=== PATIENT | male | born 1975 | race Caucasian/White ===

== ENCOUNTER 2017-02-24 21:25 | Emergency (ER) | payer MEDICAID ==
[~2017-02-24] VITALS: Ht 182.9 cm; Wt 79.4 kg
[2017-02-24 21:35] VITALS: BP 149/89
== END 2017-02-25 01:54 | disposition left against medical advice (07) ==
LOC: EDBD 21:25 → EDSEX 21:25 → ER 21:31
DX: M25.571 Pain in right ankle and joints of right foot (principal); Z53.21 Procedure and treatment not carried out due to patient leaving prior to being seen by health care provider; W19.XXXA Unspecified fall, initial encounter; Y93.89 Activity, other specified; Y99.8 Other external cause status; Y92.89 Other specified places as the place of occurrence of the external cause

== ENCOUNTER 2018-06-04 10:55 | Emergency (ER) | payer MEDICAID ==
[~2018-06-04] VITALS: Ht 195.6 cm; Wt 86.2 kg
[2018-06-04 11:53] LABS: Urine Bacteria FEW /hpf (None Seen); Urine Blood TRACE /uL (Negative); Urine Mucus FEW (None Seen); Urine Specific Gravity 1.018 (1.001-1.035); Urine WBC 1 /hpf (0 - 3)
[2018-06-04] MEDS ORDERED: PANTOPRAZOLE 40 MG TAB PO ONE (12:00)
[2018-06-04 13:28] LABS: Basophils # (auto) 0 uL; Basophils % (auto) 0.4 % (0.0-2.0); Eosinophils # (auto) 0.2 uL; Eosinophils % (auto) 1.6 % (0.0-7.0); Hematocrit 44.5 % (41.0-53.0); Hemoglobin 15.3 g/dL (13.5-17.5); Lymphocytes # (auto) 1.1 uL; Lymphocytes % (auto) 10.3 % (10.0-50.0); Mean Corpuscular Hemoglobin 33.7 pg (28.0-32.0); Mean Corpuscular Hgb Conc. 34.5 g/dL (32.0-36.0); Mean Corpuscular Volume 97.6 fL (80.0-100.0); Monocytes # (auto) 0.4 uL; Monocytes % (auto) 4.1 % (0.0-12.0); Neutrophils # (auto) 8.8 uL; Neutrophils % (auto) 83.6 % (37.0-80.0); Platelet Count (auto) 187 10^3/uL (140-450); Red Blood Cells 4.56 10^6/uL (4.5-5.90); Red Cell Distribution Width 12.3 % (11.8-14.3); White Blood Cell 10.6 10^3/uL (4.4-10.8)
[2018-06-04 13:48] LABS: Albumin 4.3 g/dL (3.4-5.0); Bilirubin, Total 0.7 mg/dL (0.2-1.0); Calcium 8.5 mg/dL (8.5-10.1); Total Protein 8.3 g/dL (6.4-8.2)
[2018-06-04 14:40] VITALS: BP 150/100
== END 2018-06-04 14:50 | disposition home or self-care (01) ==
LOC: ER 10:55
DX: R10.13 Epigastric pain (principal); F12.10 Cannabis abuse, uncomplicated; E11.9 Type 2 diabetes mellitus without complications; F17.210 Nicotine dependence, cigarettes, uncomplicated
CPT/HCPCS: 36415; 80053; 81001; 82150; 83690; 85025

== ENCOUNTER 2022-03-27 14:52 | Inpatient (IN) | payer MEDICAID ==
[~2022-03-27] VITALS: Ht 195.6 cm; Wt 92.0 kg
[2022-03-27 16:35] LABS: Basophils # (auto) 0 10 ^3/uL (0-0.2); Basophils % (auto) 0.4 % (0.0-2.0); Eosinophils # (auto) 0.1 10 ^3/uL (0-0.8); Eosinophils % (auto) 1.8 % (0.0-7.0); Hemoglobin 13.6 g/dL (13.5-17.5); Lymphocytes # (auto) 1.9 10 ^3/uL (0.4-5.4); Lymphocytes % (auto) 24.1 % (10.0-50.0); Mean Corpuscular Hemoglobin 31.9 pg (28.0-32.0); Mean Corpuscular Hgb Conc. 33.2 g/dL (32.0-36.0); Monocytes # (auto) 0.5 10 ^3/uL (0-1.3); Monocytes % (auto) 6.7 % (0.0-12.0); Neutrophils # (auto) 5.4 10 ^3/uL (1.6-8.6); Nucleated Red Blood Cells % 0.1 %; Red Blood Cells 4.26 10^6/uL (4.5-5.90); Red Cell Distribution Width 12.8 % (11.8-14.3)
[2022-03-27 16:58] LABS: Albumin 4.1 g/dL (3.4-5.0); Calcium 8.7 mg/dL (8.5-10.1); Potassium 3.6 mmol/L (3.5-5.1)
[2022-03-27 17:02] LABS: Bilirubin, Total 0.8 mg/dL (0.2-1.0); INR 0.99 (0.9-1.15); Partial Thromboplastin Time 29.4 sec (24.6-33.4); Total Protein 7.2 g/dL (6.4-8.2)
[2022-03-27] MEDS ORDERED: SODIUM CHLORIDE 0.9% 1,000 ML IV ONE (17:30)
[2022-03-27] MEDS ORDERED: PANTOPRAZOLE 40 MG/10 ML VIAL INJ IV ONE (17:30)
[2022-03-27] MEDS ORDERED: metroNIDAZOLE 500MG/100ML 100 ML IV ONE (17:30)
[2022-03-27] MEDS ORDERED: IOHEXOL 300 MG/ML 100ML BOTTLE IJ ONE (17:38)
[2022-03-27] MEDS ORDERED: ONDANSETRON ODT 4 MG TAB PO ONE (17:45)
[2022-03-27] MEDS ORDERED: MORPHINE SULFATE INJ 2 MG/ml SYRG IV ONE (17:45)
[2022-03-27] MEDS ORDERED: ONDANSETRON HCL 4 MG/2 ML VIAL IV PRN (21:15)
[2022-03-27 22:02] LABS: Hematocrit 39.9 % (41.0-53.0); Hemoglobin 13.3 g/dL (13.5-17.5)
[2022-03-27] MEDS ORDERED: HYDROmorphone HCL 2 MG/ML VL/or syr IV ONE (23:00)
[2022-03-27] MEDS: SODIUM CHLORIDE 0.9% 1,000 ML IV SCH (23:16)
[2022-03-28 06:39] LABS: Basophils # (auto) 0 10 ^3/uL (0-0.2); Basophils % (auto) 0.3 % (0.0-2.0); Eosinophils # (auto) 0.2 10 ^3/uL (0-0.8); Eosinophils % (auto) 2.6 % (0.0-7.0); Hematocrit 36.4 % (41.0-53.0); Hemoglobin 12.5 g/dL (13.5-17.5); Lymphocytes % (auto) 24.3 % (10.0-50.0); Mean Corpuscular Hemoglobin 33.1 pg (28.0-32.0); Mean Corpuscular Hgb Conc. 34.4 g/dL (32.0-36.0); Mean Corpuscular Volume 96.3 fL (80.0-100.0); Monocytes # (auto) 0.5 10 ^3/uL (0-1.3); Monocytes % (auto) 5.7 % (0.0-12.0); Neutrophils # (auto) 5.4 10 ^3/uL (1.6-8.6); Neutrophils % (auto) 67.1 % (37.0-80.0); Nucleated Red Blood Cells % 0.1 %; Red Blood Cells 3.78 10^6/uL (4.5-5.90); Red Cell Distribution Width 12.6 % (11.8-14.3); White Blood Cell 8.1 10^3/uL (4.4-10.8)
[2022-03-28 06:54] LABS: Albumin 3.3 g/dL (3.4-5.0); Potassium 3.8 mmol/L (3.5-5.1)
[2022-03-28 06:58] LABS: BUN/Creatinine Ratio 28.8; Total Protein 5.9 g/dL (6.4-8.2)
[2022-03-28] MEDS ORDERED: MORPHINE SULFATE INJ 2 MG/ml SYRG IV ONE (08:30)
[2022-03-28] MEDS: PANTOPRAZOLE 40 MG/10 ML VIAL INJ IV SCH (10:39)
[2022-03-28] MEDS: SODIUM CHLORIDE 0.9% 1,000 ML IV SCH (10:53)
[2022-03-28] MEDS: MORPHINE SULFATE INJ 2 MG/ml SYRG IV PRN ×2 (10:54→20:48)
[2022-03-28] MEDS ORDERED: MORP15TA PO (12:05)
[2022-03-28] MEDS ORDERED: AMIT50TA5 PO (12:05)
[2022-03-28] MEDS ORDERED: OXY20CRT PO (12:05)
[2022-03-28 13:00] VITALS: BP 109/72
[2022-03-28 16:42] VITALS: BP 111/65
[2022-03-28 22:00] VITALS: BP 121/82
[2022-03-29] MEDS: SODIUM CHLORIDE 0.9% 1,000 ML IV SCH ×2 (04:14→08:33)
[2022-03-29] MEDS: MORPHINE SULFATE INJ 2 MG/ml SYRG IV PRN ×2 (04:14→10:28)
[2022-03-29 05:00] VITALS: BP 105/75
[2022-03-29 09:00] VITALS: BP 114/66
[2022-03-29] MEDS: PANTOPRAZOLE 40 MG/10 ML VIAL INJ IV SCH (09:56)
[2022-03-29] MEDS ORDERED: MIDAZOLAM HCL 5 MG/ML-1ML VIAL ONE (12:33)
[2022-03-29] MEDS ORDERED: SODIUM CHLORIDE LOCK 10 ML ONE (12:33)
[2022-03-29] MEDS ORDERED: fentaNYL CITRATE 100 MCG/2 ML VL ONE ×2 (12:34→16:07)
[2022-03-29] MEDS ORDERED: diphenhdrAMINE HCL 50 MG/1 ML VL ONE (12:34)
[2022-03-29] MEDS ORDERED: LIDOCAINE VISCOUS 2% 15ML UD ONE (12:39)
[2022-03-29 13:00] VITALS: BP 122/82
[2022-03-29] MEDS ORDERED: CYCL-839 PO (13:06)
[2022-03-29] MEDS ORDERED: CYCLOBENZAPRINE HCL 10 MG TAB PO PRN (15:00)
[2022-03-29] MEDS ORDERED: OXYCODONE W/ ACETAMINOPHEN 5/325MG TABLET PO PRN (15:15)
[2022-03-29] MEDS ORDERED: PANT40TA2 PO (16:29)
[2022-03-29 16:56] VITALS: BP 122/83
[2022-03-29] MEDS ORDERED: MORPHINE SULF 15mg ER tab PO SCH (18:00)
[2022-03-29] MEDS ORDERED: OXYCODONE W/ ACETAMINOPHEN 5/325MG TABLET PO SCH (18:00)
[2022-03-29 18:01] VITALS: BP 122/82
[2022-03-29] MEDS ORDERED: AMITRIPTYLINE HCL 25 MG TAB PO SCH (22:00)
[2022-03-30] MEDS ORDERED: MORPHINE SULF 15mg ER tab PO SCH (10:00)
== END 2022-03-29 18:43 | disposition home or self-care (01) | DRG 241 ==
LOC: ER 14:52 → OVERFLOW 21:04 → WEST WING 03-28 09:03
PROVIDERS: ADMIT Nurse Practitioner; ATTEND Internal Medicine
PROC: 0DB68ZX Excision of Stomach, Via Natural or Artificial Opening Endoscopic, Diagnostic (ICD-10-PCS; principal; 2022-03-29 15:56)
DX: K29.71 Gastritis, unspecified, with bleeding (principal); K22.11 Ulcer of esophagus with bleeding; K27.4 Chronic or unspecified peptic ulcer, site unspecified, with hemorrhage; E11.9 Type 2 diabetes mellitus without complications; F12.10 Cannabis abuse, uncomplicated; F17.210 Nicotine dependence, cigarettes, uncomplicated; G89.4 Chronic pain syndrome; Z20.822 Contact with and (suspected) exposure to COVID-19; N20.0 Calculus of kidney; Z21 Asymptomatic human immunodeficiency virus [HIV] infection status; K44.9 Diaphragmatic hernia without obstruction or gangrene; Z87.11 Personal history of peptic ulcer disease
CPT/HCPCS: 36415; 43239; 71260; 74177; 80053; 85014; 85018; 85025; 85610; 85730; 86677; 86850; 86900; 86901; 96365; 96375; C9113; G0378; J2250; J3490; Q0162

== ENCOUNTER 2023-03-04 18:24 | Emergency (ER) | payer MEDICAID ==
[~2023-03-04] VITALS: Ht 188 cm; Wt 84.0 kg
[2023-03-04 18:24] VITALS: BP 125/76
[~2023-03-04 18:24] MED LIST: AMIT50TA10 PO; CYCL-839 PO; MORP15TA PO; OXY20CRT PO; PANT40TA2 PO
[2023-03-04 19:52] LABS: Basophils # (auto) 0.1 10 ^3/uL (0-0.2); Basophils % (auto) 0.9 % (0.0-2.0); Eosinophils # (auto) 0.1 10 ^3/uL (0-0.8); Eosinophils % (auto) 1.7 % (0.0-7.0); Hematocrit 37.8 % (41.0-53.0); Hemoglobin 12.9 g/dL (13.5-17.5); Lymphocytes # (auto) 1.6 10 ^3/uL (0.4-5.4); Mean Corpuscular Hemoglobin 32.8 pg (28.0-32.0); Mean Corpuscular Hgb Conc. 34.1 g/dL (32.0-36.0); Mean Corpuscular Volume 96.1 fL (80.0-100.0); Monocytes # (auto) 0.5 10 ^3/uL (0-1.3); Monocytes % (auto) 5.6 % (0.0-12.0); Neutrophils # (auto) 5.9 10 ^3/uL (1.6-8.6); Neutrophils % (auto) 71.8 % (37.0-80.0); Red Blood Cells 3.94 10^6/uL (4.5-5.90); Red Cell Distribution Width 13.3 % (11.8-14.3); White Blood Cell 8.1 10^3/uL (4.4-10.8)
[2023-03-04 20:11] LABS: Albumin 3.9 g/dL (3.4-5.0); Calcium 8.4 mg/dL (8.5-10.1); Potassium 3.3 mmol/L (3.5-5.1)
[2023-03-04 20:16] LABS: BUN/Creatinine Ratio 20.3 (10.0-20.0); Bilirubin, Total 0.5 mg/dL (0.2-1.0); Total Protein 7.2 g/dL (6.4-8.2)
== END 2023-03-04 19:50 | disposition left against medical advice (07) ==
LOC: ER 18:24 → EDSEX 18:24 → EDBD 18:24 → ER 19:50
DX: R41.82 Altered mental status, unspecified (principal); E11.9 Type 2 diabetes mellitus without complications; I10 Essential (primary) hypertension; F17.210 Nicotine dependence, cigarettes, uncomplicated; F12.10 Cannabis abuse, uncomplicated; Z86.73 Personal history of transient ischemic attack (TIA), and cerebral infarction without residual deficits
CPT/HCPCS: 36415; 71045; 80053; 80320; 85025